=== PATIENT | female | born 1955 | race Caucasian/White ===

== ENCOUNTER → 2017-01-07 | Day surgery (SDC) | payer OTHER ==
[~2017-01-07] VITALS: Ht 157.5 cm; Wt 73.5 kg
[~2017-01-07] MED LIST: ACETAMINOPHEN 325 MG TAB PO PRN; ADV500INH INH; ALBU17IN INH; ALBU83IN INH; AcetaZOLAMIDE 500 MG ER CAP PO ONE; BSS with VANC/TOB/EPI for EYE CASES IR ONE; CYCLOPENTOLATE 2% OPHTH SOLN OD ONE; HEALON DUET (HEALON 10MG/ML 0.55ML & HEALON ENDOCOAT 30MG/ML 0.85ML) As Ordered ONE; IRON50TA PO; KETOROLAC 0.5% OPHTH SOLN OD ONE; LIDOCAINE 1% SDV 5 ML VIAL As Ordered ONE; LIDOCAINE 4% INJ 5 ML AMP OU ONE; MEDR10TA PO; METF500T PO; METO100T PO; MIDAZOLAM INJ 2 MG/2 ML VIAL (J2250) As Ordered ONE; MOXIFLOXACIN IN BSS 0.25MG/0.25ML INTRACAMERAL INJ (OR EYE ONLY)(J2280) As Ordered ONE; OFLOXACIN 0.3 % (OCUFLOX) OPTH SOL 5ML OD ONE; PHENYLEPHRINE 2.5% OPHTH SOL 2ML OD ONE; POVIDONE-IODINE 5% OPHTH PREP SOL 30ML As Ordered ONE; PROPARACAINE 0.5% OPHTH SOL 15ML OD PRN; QUIN40TA5 PO; SPIR1AER IN; TIOT18INH INH; TRAZ100T4 PO; TRIAMCINOLONE PRES FR 40 MG/ML 1ML(TRIESENCE)(OR EYE ONLY)(J3300 PER 1MG) As Ordered ONE; TRIMETHOBENZAMIDE 300 MG CAP PO PRN; TROPICAMIDE 1% OPHTH SOLN 2 ML OD ONE; VERA40TA PO; fentaNYL 100 MCG/2 ML INJECTION (J3010) As Ordered ONE
--- NOTE | 2017-01-07 09:52 | RO ---
DATE OF PROCEDURE: 01/07/2017 PREPROCEDURE DIAGNOSIS: Cataract of right eye. POSTPROCEDURE DIAGNOSIS: Cataract of right eye. PROCEDURE: Femtosecond laser and phacoemulsification, intraocular lens implantation of model PCB 00, power 24.5 diopter. SURGEON: Dr. Carson Hung BLOWER OPERATOR: None. ANESTHESIA: Local IV standby. FINDINGS: Cataract of right eye. COMPLICATIONS: None. DESCRIPTION OF PROCEDURE: The patient was brought to the operating room and laid in supine position. A lid speculum was placed, and patient was brought under the femtosecond laser. After the satisfactory placement of the patient interface, primary incision, secondary incision, and arcuate incisions with lens fragmentation was done without any complication per plan. The patients interface was then removed and lid speculum removed. The patient was placed under the microscope. The eye was prepped and draped in a sterile fashion for ophthalmic surgery. Lid speculum was placed. The secondary incision was opened and EndoCoat was injected into the anterior chamber. The temporal clear corneal incision was then opened and capsulorrhexis removed, followed by hydrodissection. This was followed by phacoemulsification of the lens within the capsular bag. Cortical material was then aspirated, and Healon was injected into the capsular bag. Intraocular lens was then placed. Excess Healon was aspirated. Wound was hydrated. The lid speculum was removed, and patient was returned to the recovery room in stable condition.
[2017-01-07 10:30] VITALS: BP 134/85
== END | disposition home or self-care (01) ==
LOC: M SDC 08:09
PROVIDERS: ATTEND Ophthalmology
DX: H26.9 Unspecified cataract (principal); E11.9 Type 2 diabetes mellitus without complications; I10 Essential (primary) hypertension; I73.9 Peripheral vascular disease, unspecified; J44.9 Chronic obstructive pulmonary disease, unspecified; F17.210 Nicotine dependence, cigarettes, uncomplicated; Z79.899 Other long term (current) drug therapy; Z79.51 Long term (current) use of inhaled steroids

== ENCOUNTER → 2017-01-27 | Day surgery (SDC) | payer OTHER ==
[~2017-01-27] VITALS: Ht 157.5 cm; Wt 73.0 kg
[~2017-01-27] MED LIST changes: +CYCLOPENTOLATE 2% OPHTH SOLN 2ML BTL OS ONE; -CYCLOPENTOLATE 2% OPHTH SOLN OD ONE; -KETOROLAC 0.5% OPHTH SOLN OD ONE; +KETOROLAC 0.5% OPHTH SOLN OS ONE; -OFLOXACIN 0.3 % (OCUFLOX) OPTH SOL 5ML OD ONE; +OFLOXACIN 0.3 % (OCUFLOX) OPTH SOL 5ML OS ONE; -PHENYLEPHRINE 2.5% OPHTH SOL 2ML OD ONE; +PHENYLEPHRINE 2.5% OPHTH SOL 2ML OS ONE; -PROPARACAINE 0.5% OPHTH SOL 15ML OD PRN; +PROPARACAINE 0.5% OPHTH SOL 15ML OS PRN; -TROPICAMIDE 1% OPHTH SOLN 2 ML OD ONE; +TROPICAMIDE 1% OPHTH SOLN 2ML OS ONE
[2017-01-27 13:05] VITALS: BP 128/58
== END ==
LOC: M SDC 09:51
PROVIDERS: ATTEND Ophthalmology
DX: H26.9 Unspecified cataract (principal); J44.9 Chronic obstructive pulmonary disease, unspecified; I10 Essential (primary) hypertension; I73.9 Peripheral vascular disease, unspecified; E11.9 Type 2 diabetes mellitus without complications; G62.9 Polyneuropathy, unspecified; C18.9 Malignant neoplasm of colon, unspecified; Z72.0 Tobacco use; Z79.899 Other long term (current) drug therapy; Z79.84 Long term (current) use of oral hypoglycemic drugs

== ENCOUNTER → 2019-08-30 | Outpatient (REF) | payer OTHER ==
[~2019-08-30] MED LIST changes: -ACETAMINOPHEN 325 MG TAB PO PRN; -AcetaZOLAMIDE 500 MG ER CAP PO ONE; -BSS with VANC/TOB/EPI for EYE CASES IR ONE; -CYCLOPENTOLATE 2% OPHTH SOLN 2ML BTL OS ONE; -HEALON DUET (HEALON 10MG/ML 0.55ML & HEALON ENDOCOAT 30MG/ML 0.85ML) As Ordered ONE; -KETOROLAC 0.5% OPHTH SOLN OS ONE; -LIDOCAINE 1% SDV 5 ML VIAL As Ordered ONE; -LIDOCAINE 4% INJ 5 ML AMP OU ONE; -METF500T PO; +METF500T13 PO; -METO100T PO; +METO100T5 PO; -MIDAZOLAM INJ 2 MG/2 ML VIAL (J2250) As Ordered ONE; -MOXIFLOXACIN IN BSS 0.25MG/0.25ML INTRACAMERAL INJ (OR EYE ONLY)(J2280) As Ordered ONE; -OFLOXACIN 0.3 % (OCUFLOX) OPTH SOL 5ML OS ONE; -PHENYLEPHRINE 2.5% OPHTH SOL 2ML OS ONE; -POVIDONE-IODINE 5% OPHTH PREP SOL 30ML As Ordered ONE; -PROPARACAINE 0.5% OPHTH SOL 15ML OS PRN; +QUIN1TAB4 PO; -QUIN40TA5 PO; +TRAZ-163 PO; -TRAZ100T4 PO; -TRIAMCINOLONE PRES FR 40 MG/ML 1ML(TRIESENCE)(OR EYE ONLY)(J3300 PER 1MG) As Ordered ONE; -TRIMETHOBENZAMIDE 300 MG CAP PO PRN; -TROPICAMIDE 1% OPHTH SOLN 2ML OS ONE; -fentaNYL 100 MCG/2 ML INJECTION (J3010) As Ordered ONE
[2019-08-30 19:46] LABS: ALBUMIN 2.6 GM/DL (3.2-5.2); BILIRUBIN,DIRECT 0.3 MG/DL (0.0-0.2); BILIRUBIN,TOTAL 0.9 MG/DL (0.2-1.0); TOTAL PROTEIN 6.2 GM/DL (6.4-8.2)
[2019-08-31 08:08] LABS: URINE TOTAL PROTEIN 26.2 MG/DL (0-12)
[2019-08-31 10:06] LABS: HEPATITIS C VIRUS ABY INDEX 0.1 INDEX (<0.8)
[2019-09-01 12:45] LABS: UPEP INTERPRETATION NO M-SPIKE NOTED; URINE VOLUME RANDOM ML
== END ==
LOC: M LAB REF 17:17
PROVIDERS: ATTEND Internal Medicine Nephrology
DX: N18.4 Chronic kidney disease, stage 4 (severe) (principal); K74.69 Other cirrhosis of liver; R31.9 Hematuria, unspecified